=== PATIENT | male | born 1960 | race Two or more races ===

== ENCOUNTER 2023-02-05 11:18 | Outpatient (CLI) | payer OTHER | END 2023-02-05 23:59 | disposition home or self-care (01) | LOC: LAB 11:18 | PROVIDERS: ATTEND Specialist | DX: Z01.812 Encounter for preprocedural laboratory examination (principal); Z20.822 Contact with and (suspected) exposure to COVID-19 | CPT/HCPCS: U0003; C9803 ==

== ENCOUNTER 2023-02-09 05:02 | Inpatient (IN) | payer OTHER ==
[~2023-02-09] VITALS: Ht 157.5 cm; Wt 73.2 kg
--- NOTE | 2023-02-09 05:45 | NUR ---
DAY SURGERY PRE-OP ADMITTING RN NOTE PATIENT WALKED INTO THE UNIT AT 0520 THIS MORNING. UPON ARRIVAL, VITAL SIGNS WERE TAKEN; BELONGING SHEET WERE CHECKED AND SIGNED BY THE PT. PT BROUGHT IN TWO BOTTLE OF HIS HOME MEDICATION, SEALED IN A BAG AND WILL BE SENT TO THE PHARMACY. HE IS ON RA, TOLERATED WELL. NO S/S OF DISTRESS. PT IS SAMMARINESE SPEAKING, WM MASON HELPED WITH THE INTERPRETATION. IV STARTED AT PT'S L HAND, #20G, SL. PT IS ALERT AND ORIENTED, AO X 4. SURGICAL CONSENT HAS BEEN SIGNED BY THE PT. SAFETY MEASURES ARE IN PLACED: BED IN LOWEST AND LOCKED POSITION; SIDE RAILS UP X 2; CALL LIGHT AND TABLE ARE WITHIN REACH. WILL CONTINUE MONITORING THE PT AND PROVIDE THE CARE PT NEEDS.
[2023-02-09 06:03] VITALS: BP 158/88
[2023-02-09] MEDS ORDERED: BUPIVACAINE 0.5 % PF 150 MG/30 ML VIAL ONE (06:17)
[2023-02-09] MEDS ORDERED: POLYMYXIN B SULFATE 500,000 UNITS ONE (06:17)
[2023-02-09] MEDS ORDERED: ANESTHESIA TRAY IN PYXIS 1 EA TRAY MC ONE (06:17)
--- NOTE | 2023-02-09 06:20 | NUR ---
DAY SURGERY RN NOTE REPORT GIVEN TO THE OR NURSE, AMBER. PT WAS TRANSPORTED TO THE ER ON THE BED.
[2023-02-09] MEDS ORDERED: BUPIVACAINE 0.25% 75 MG/30 ML VIAL ONE (06:29)
[2023-02-09] MEDS ORDERED: TRANEXAMIC ACID 3,000 MG in SODIUM CHLORIDE IRRIG SOLUTION 70 ML IR ONE (06:30)
[2023-02-09] MEDS ORDERED: FENTANYL PF 100MCG/2ML AMPUL ONE ×2 (06:34→08:53)
[2023-02-09] MEDS ORDERED: HYDROMORPHONE INJ 2 MG/ML DISP.SYRIN ONE (06:35)
[2023-02-09] MEDS ORDERED: BUPIVACAINE MPF 0.75% 30 ML VIAL ONE (06:35)
[2023-02-09] MEDS ORDERED: PROPOFOL 0 ML ONE (06:35)
[2023-02-09] MEDS ORDERED: TRANEXAMIC ACID 1,000 MG/10 ML VIAL ONE (06:36)
[2023-02-09] MEDS ORDERED: MIDAZOLAM HCL 2 MG/2ML VIAL ONE (06:40)
--- NOTE | 2023-02-09 07:47 | NUR ---
DAY SURGERY RN NOTE CHANGE SHIFT REPORT GIVEN TO THE DAY SHIFT RN SHAY. PT'S HOME MEDICATION DELIVERED TO THE PHARMACY. THE STUB WAS GIVEN TO SHAY RN TO PUT IN THE PT'S CHART ONCE PT IS BACK TO THE UNIT.
[2023-02-09 10:00] VITALS: BP 145/89
[2023-02-09] MEDS ORDERED: ZOLPIDEM TARTRATE 5 MG TABLET PO PRN (12:00)
[2023-02-09] MEDS ORDERED: BISACODYL SUPP (10 MG) 10 MG/SUPP.RECT SUPP.RECT RC PRN (12:00)
[2023-02-09] MEDS ORDERED: ONDANSETRON HCL/PF 4 MG/2 ML VIAL IVP PRN (12:00)
[2023-02-09] MEDS ORDERED: DOCUSATE SODIUM 250 MG CAPSULE PO PRN (12:00)
[2023-02-09] MEDS ORDERED: SENNOSIDES 8.6 MG TABLET PO PRN (12:00)
[2023-02-09] MEDS ORDERED: DEXTROSE 50%-WATER 50 ML DISP.SYRIN IV PRN (14:00)
[2023-02-09] MEDS: ACETAMINOPHEN 325 MG TABLET PO PRN ×2 (14:23→18:41)
[2023-02-09] MEDS: ANCEF 1 GM/50 ML D5W IV SCH ×4 (15:40→23:15)
[2023-02-09] MEDS: IV D5/0.45 NACL 1,000 ML IV PRN ×2 (15:52→23:25)
[2023-02-09 16:27] VITALS: BP 122/80
[2023-02-09] MEDS: ASPIRIN 325 MG TABLET PO SCH ×2 (17:00→17:38)
[2023-02-09] MEDS: BLOOD SUGAR DIAGNOSTIC 1 EACH STRIP IN SCH ×2 (17:37→23:16)
[2023-02-09] MEDS: INSULIN REGULAR, HUMAN 100 UNIT/ML 3 ML VIAL SQ PRN ×2 (17:38→23:22)
[2023-02-09 20:00] VITALS: BP 139/80
--- NOTE | 2023-02-09 22:21 | NUR ---
RIGHT KNEE PAIN Patient in bed, limited movement RLE d/t pain. Only have Tylenol, not due for next administration. Patient c/o right knee pain 03/18. Notified JOB SERVICE CONSULTANT Joshua with new orders placed. [place] 5/325 PO q6h PRN for moderate pain and Morphine 4mg IV q4h PRN Severe pain. Will cont to monitor patient.
[2023-02-09] MEDS: HYDROCODONE/APAP 5/325MG TABLET PO PRN (22:40)
[2023-02-10] MEDS: BLOOD SUGAR DIAGNOSTIC 1 EACH STRIP IN SCH ×4 (05:50→23:31)
[2023-02-10] MEDS: HYDROCODONE/APAP 5/325MG TABLET PO PRN ×2 (05:51→16:55)
[2023-02-10] MEDS: INSULIN REGULAR, HUMAN 100 UNIT/ML 3 ML VIAL SQ PRN ×4 (06:10→23:33)
[2023-02-10 06:34] LABS: BASOPHILS % (AUTO) 0.1 % (0.0-2.0); EOSINOPHILS % (AUTO) 0.1 % (0.0-6.0); HEMATOCRIT 37 % (39-51); HEMOGLOBIN 11.9 g/dL (13.5-17.5); LYMPHOCYTES # (AUTO) 1.3 K/uL (0.8-4.8); LYMPHOCYTES % (AUTO) 10.5 % (20.0-44.0); MEAN CORPUSCULAR HGB CONC 32 g/dl (31.0-36.0); MEAN CORPUSCULAR VOLUME 96 fL (80-96); MONOCYTES # (AUTO) 1.3 K/uL (0.1-1.30); MONOCYTES % (AUTO) 10.6 % (2.0-12.0); NEUTROPHILS # (AUTO) 9.6 K/uL (1.8-8.9); NEUTROPHILS % (AUTO) 78.7 % (43.0-81.0); PLATELET COUNT (AUTO) 223 K/uL (150-450); RED BLOOD CELL COUNT(AUTO) 3.83 MIL/uL (4.5-6.0); WHITE BLOOD COUNT (AUTO) 12.2 K/uL (4.3-11.0)
--- NOTE | 2023-02-10 06:45 | NUR ---
END OF SHIFT REPORT Patient in bed, Alert Oriented x4. Oxygen sat low 90's in RA, denies sob, no c/o chest pain. IV left hand intact, IVF continuous. Given IV abx as scheduled. Afebrile. Right knee incision dressing clean and dry, no new drainage. Right knee incisional pain managed with Lily, Afebrile. Bld glucose monitored, given insulin per sliding scale parameters. Planned for PT services post of Right TKA. Fall precaution maintained. Will endorse to oncoming RN.
[2023-02-10 06:57] LABS: CALCIUM, SERUM 8.2 mg/dL (8.5-10.1); CREATININE 0.7 mg/dL (0.6-1.3); MAGNESIUM 1.9 mg/dL (1.8-2.4); PHOSPHORUS 2.9 mg/dL (2.5-4.9); POTASSIUM 3.9 mmol/L (3.5-5.1)
--- NOTE | 2023-02-10 07:27 | NUR ---
MS RN OPENING NOTE RECEIVED PATIENT AWAKE IN BED. A/O X4, MONGOLIAN SPEAKING, ABLE TO MAKE NEEDS KNOWN, NO PAIN OR DISCOMFORT AT THIS TIME. DRESSING ON RIGHT KNEE WRAP WITH SUZANNE BANDAGE C/D/I. ON ROOM AIR, NO SIGNS OF ACUTE DISTRESS NOTED. IV ACCESS ON LEFT HAND G20 INTACT AND INFUSING WELL. ALL SAFETY MEASURES IN PLACE: BED LOCKED AND IN LOWEST POSITION, SIDE RAILS UP X 2, CALL LIGHT AND TRAY TABLE WITHIN EASY REACH. WILL CONTINUE TO MONITOR CLOSELY.
[2023-02-10 08:00] VITALS: BP 145/76
[2023-02-10] MEDS: ASPIRIN 325 MG TABLET PO SCH ×2 (08:13→16:44)
[2023-02-10] MEDS: IV D5/0.45 NACL 1,000 ML IV PRN ×2 (10:37→21:27)
[2023-02-10] MEDS ORDERED: ACET-868 PO (10:39)
[2023-02-10] MEDS ORDERED: AMLO-213 PO (10:39)
[2023-02-10] MEDS ORDERED: LISI40TA13 PO (10:39)
[2023-02-10] MEDS: ACETAMINOPHEN 325 MG TABLET PO PRN (13:23)
[2023-02-10 16:00] VITALS: BP 171/85
--- NOTE | 2023-02-10 17:00 | NUR ---
RN NOTES PATIENT COMPLAINED OF RIGHT KNEE PAIN 7/10 SCALE, PRN NORCO 5/325MG TAB GIVEN AT 1655. WILL CONTINUE TO REASSESS AND MONITOR PATIENT.
--- NOTE | 2023-02-10 18:37 | NUR ---
MS RN CLOSING NOTES Patient in bed, Alert Oriented x4. on O2 at 2LPM via nasal cannula tolerating well, no c/o chest pain and . IV access at left hand g#20 intact and patent with IV fluid of D5 1/2 NS @ 125 ml/hr patent and intact. Afebrile. Right knee incision dressing clean and dry, no new drainage. Right knee incisional pain managed with norco. diabetic status closely monitored. Fall precaution maintained. Will endorse to film processing shift supervisor nurse for [email or web address].
--- NOTE | 2023-02-10 19:25 | NUR ---
MS RN NOTES RECEIVED SITTING ON BED,A/O X4,SPEAK COLOMBIAN,S/P RIGHT KNEE ARTHROPLASTY,DRESSING INTACT AND DRY.PAIN TOLERABLE AT THE MOMENT.PRESENT IVF INFUSING WELL ON LEFT HAND SALINE LOCK VIA IV PUMP.WILL MONITOR FOR PAIN,CALL LIGHT IN REACH,NEEDS ANTICIPATED.
[2023-02-10 20:00] VITALS: BP 150/88
[2023-02-10] MEDS: MORPHINE SULFATE INJ 4 MG/ML DISP.SYRIN IV PRN (21:19)
--- NOTE | 2023-02-10 21:19 | NUR ---
MS RN NOTES AWAKE,HAVING PAIN ON RIGHT KNEE 9/10 ON PAIN SCALE,MEDICATED WITH MORPHINE 4MG IV ORDERED.WILL MONITOR FOR RELIEF.
--- NOTE | 2023-02-10 23:30 | NUR ---
MS RN NOTES ACCU-CHECK BLOOD SUGAR CHECK 165,G/DL,COVERED WITH HUMULIN R 3 UNITS PER SLIDING SCALE.SNACKS AT BEDSIDE.
[2023-02-11] MEDS: HYDROCODONE/APAP 5/325MG TABLET PO PRN ×2 (04:21→14:16)
--- NOTE | 2023-02-11 04:25 | NUR ---
MS RN NOTES AWAKE,HAVING PAIN 6/10 ON RIGHT KNEE.NORCO 5/325MG,1 TAB PO GIVEN ORDERED AND PER PATIENT REQUEST.
--- NOTE | 2023-02-11 05:30 | NUR ---
MS RN NOTES ACCU-CHECK BLOOD SUGAR CHECK 153MG/DL,COVERED WITH HUMULIN R 2U PER SLIDING SCALE.A/O X4.
[2023-02-11] MEDS: BLOOD SUGAR DIAGNOSTIC 1 EACH STRIP IN SCH ×2 (05:32→12:10)
[2023-02-11] MEDS: INSULIN REGULAR, HUMAN 100 UNIT/ML 3 ML VIAL SQ PRN ×2 (05:39→12:13)
[2023-02-11] MEDS: IV D5/0.45 NACL 1,000 ML IV PRN (06:07)
--- NOTE | 2023-02-11 06:41 | NUR ---
MS RN NOTES ON BED A/O X4,WITH LARGE VOLUME OF URINE OUTPUT,ON IVF AT 125ML/HR RATE.NO SOB NOTED.PAIN MANAGEMENT EFFECTIVE.POSSIBLE DISCHARGE TODAY WITH H/H .IN NO ACUTE DISTRESS.
[2023-02-11 07:00] VITALS: BP 143/87
--- NOTE | 2023-02-11 07:12 | NUR ---
FINGERNAIL SCULPTURER OPENING NOTES RECEIVED PATIENT AWAKE, A/Ox4, IS VINCENTIAN SPEAKING. HE IS ON RA, NO SOB NOTED. IV ACCESS LEFT HAND #20G AND IS RUNNING D51/2 NS AT 125ML/HR. INTACT AND PATENT. ON BED REST, WEIGHT BEARING TOLERATED WITH WALKER.USES URINAL. SKIN ISSUES RIGHT KNEE INCISION DRESSING IN PLACE. PAIN NOTED /10, NO PAIN MEDICATION REQUESTED AT THIS TIME. SAFETY MEASURES IN PLACE: BED IS LOCK IN LOWEST POSITION, SIDE RAILS X2, CALL LIGHT IN REACH AND HOB ELEVATED. WILL CONTINUE TO MONITOR.
[2023-02-11] MEDS: ASPIRIN 325 MG TABLET PO SCH (08:30)
--- NOTE | 2023-02-11 08:58 | NUR ---
CHIP FRIER NOTE PATIENT COMPLAIN OF PAIN AND REQUESTED TYLENOL. WE CONTINUE TO MONITOR.
[2023-02-11] MEDS: MORPHINE SULFATE INJ 4 MG/ML DISP.SYRIN IV PRN (09:54)
--- NOTE | 2023-02-11 10:10 | NUR ---
RN NOTES PATIENT COMPLAINED OF PAIN 8/10 BEFORE PT, REQUESTED PRN MORPHINE. PRN MEDICATION ADMINISTERED. WILL CONTINUE TO MONITOR.
[2023-02-11] MEDS ORDERED: ASPI-992 PO (11:44)
[2023-02-11] MEDS ORDERED: HYDR-3972 PO (11:44)
--- NOTE | 2023-02-11 14:36 | NUR ---
TREADLE CUT OFF SAW OPERATOR NOTE PATIENT COMPLAIN OF PAIN 7/10 PRN NORCO ADMINISTERED. WILL CONTINUE TO MONITOR.
--- NOTE | 2023-02-11 15:51 | NUR ---
EXTRUSION UTILITY WORKER DISCHARGE NOTE PATIENT AWAKE, A/Ox4, STABLE, D/C HOME WITH HOME HEALTH. STABLE ON ROOM AIR, NO S/S OF SOB. HEALTH TEACHING AND DISCHARGE INSTRUCTION EXPLAINED TO THE PATIENT. PATIENT VERBALIZED UNDERSTANDING INSTRUCTIONS. IV ACCESS REMOVED PRESSURE DRESSING APPLIED AND ID BAND REMOVED. THE PATIENT LEFT WITH DRESSING INTACT CLEAN AND DRY ON THE RIGHT KNEE. PATIENT LEFT UNIT VIA W/C WITH BELONGINGS ACCOMPANIED BY MAURY PACHECO AT 14:52. CHARGE NURSE AND MD. AWARE ABOUT DISCHARGE.
== END 2023-02-11 14:50 | disposition home or self-care (01) | DRG 470 ==
LOC: DS 05:02 → MED 05:04
PROVIDERS: ADMIT Specialist; ATTEND Specialist
PROC: 0SRC0J9 Replacement of Right Knee Joint with Synthetic Substitute, Cemented, Open Approach (ICD-10-PCS; principal; 2023-02-09)
DX: M17.11 Unilateral primary osteoarthritis, right knee (principal); I10 Essential (primary) hypertension; E11.9 Type 2 diabetes mellitus without complications; Z20.822 Contact with and (suspected) exposure to COVID-19
CPT/HCPCS: 36415; 80048-TC; 82962-TC; 83735-TC; 84100-TC; 85025-TC; 87081-TC; 97116-TC; 97530-TC; 97760-TC; A4217; A4223; C1713; C1776; C9803; G0378; J0690; J1170; J1815; J2250; J2270; J2405; J2704; J2765; J3010; J3490; J7030; J7060; L1830; U0003